=== PATIENT | male | born 1980 | race Caucasian/White ===

== ENCOUNTER → 2022-09-22 09:55 | Outpatient (CLI) | payer OTHER, SELFPAY ==
[2022-09-22 11:13] LABS: Add Manual Diff / Slide Review NO; Basophils Absolute Auto 0 /uL (0-100); Basophils Percent Auto 0.8 % (0-2); Eosinophils Absolute Auto 100 /uL (0-450); Eosinophils Percent Auto 2.3 % (2-4); Hematocrit 41.4 % (41-53); Lymphocytes Absolute Auto 1000 /uL (1100-4500); Lymphocytes Percent Auto 26.5 % (25-40); Mean Corpuscular HGB Conc 33.8 % (30-36); Mean Corpuscular Hemoglobin 27.3 PG (26-34); Mean Corpuscular Volume 80.8 fL (80-100); Monocytes Absolute Auto 300 /uL (0-900); Monocytes Percent Auto 9.1 % (3-14); Neutrophils Absolute Auto 2200 /uL (1500-7000); Neutrophils Percent Auto 61.3 % (50-75); Platelet Count 190 X10^3/uL (150-400); Red Blood Cell Count 5.12 X10^6/uL (4.5-5.9); Red Cell Distribution Width 13.6 % (11.6-14.8); White Blood Cell Count 3.6 X10^3/uL (4.5-11.0)
[2022-09-22 11:33] LABS: Alanine Aminotransferase 675 IU/L (<50); Albumin 4.6 g/dL (3.5-5.0); Albumin Globulin Ratio 1.4 (1.0-2.8); Alkaline Phosphatase 93 U/L (38-126); Aspartate Aminotransferase 260 IU/L (17-59); BUN Creatinine Ratio 13.3 (6-22); Bilirubin Total 7.1 mg/dL (0.2-1.3); Blood Urea Nitrogen 16 mg/dL (9-20); Calcium 9.4 mg/dL (8.4-10.2); Carbon Dioxide 26 mmol/L (22-32); Chloride 103 mmol/L (98-107); Estimated Glomerular Filt Rate > 60 mL/min (>60); Globulin 3.4 g/dL (1.7-4.1); Glucose 105 mg/dL (70-100); HEMOLYSIS < 15 (0-50); Lipase 81 U/L (23-300); Potassium 4.3 mmol/L (3.4-5.1); Sodium 140 mmol/L (137-145)
== END ==
PROVIDERS: Referring Provider Nurse Practitioner Family; Visit Provider Nurse Practitioner Family
DX: R10.9 Unspecified abdominal pain (principal)
CPT/HCPCS: 36415; 80053; 83690; 85025; 87086

== ENCOUNTER 2022-09-22 13:26 | Emergency (ER) | payer OTHER, SELFPAY ==
[2022-09-22] VITALS (12 sets, daily range): BP systolic 120–160; BP diastolic 70–110; PULSE 41–56; RESP 14–19; TEMP 37; O2SAT 94–100; BMI 28.0
--- NOTE | 2022-09-22 13:45 | DI.US.S_ITS ---
PROCEDURE: US ABDOMEN LIMITED INDICATIONS: ABNORMAL LABS TECHNIQUE: Real-time scanning was performed of the abdominal, with image documentation. COMPARISON: [facility], CT, CT CHEST ABD PEL W CON, 09/22/2022, 13:54. FINDINGS: Liver: Liver is normal in size and homogeneous in echotexture. Gallbladder: Nondilated. Sludge is present. No additional stones identified. Normal gallbladder wall thickness. No pericholecystic fluid. Negative sonographic Collins's sign. Biliary ducts: Intrahepatic biliary ductal dilatation. CBD is dilated measuring measures 2.1 cm. Distal CBD is not well seen. Pancreas: Not well seen. IMPRESSION: Biliary ductal dilatation. Choledocholithiasis seen on CT earlier today. Recommend ERCP. Gallbladder sludge. Dictated by: Kaleb Grover M.D. on 09/22/2022 at 15:39 Approved by: Kaleb Grover M.D. on 09/22/2022 at 15:44
--- NOTE | 2022-09-22 13:45 | DI.CT.S_ITS ---
PROCEDURE: CT CHEST ABD PEL W CON INDICATIONS: elevated liver enzymes, suspect cancer TECHNIQUE: After the administration of intravenous contrast, 5 mm thick sections acquired from the lung apices to the symphysis. 5 mm coronal and sagittal reformats were performed, with additional 7 mm MIP reformats through the lungs. For radiation dose reduction, the following was used: automated exposure control, adjustment of mA and/or kV according to patient size. COMPARISON: [facility], , ABDOMEN LIMITED, 09/22/2022, 14:09. FINDINGS: CHEST: Lungs and pleura: No consolidation. No pleural effusions or pneumothorax. Mediastinum: No pericardial effusion. No mediastinal or hilar adenopathy by size criteria. Thoracic aorta and central pulmonary arteries are normal in size. Esophagus is normal in caliber. Chest wall: No axillary or supraclavicular adenopathy by size criteria. ABDOMEN: Solid organs: Liver is normal in size and enhancement. Gallbladder is distended . Intrahepatic and extrahepatic biliary ductal dilation is present. Extrahepatic duct measures 18 millimeters. a 6 millimeter stone is present at the downstream duct/ampulla. Pancreas enhances normally. 1.6 centimeter peripherally enhancing structure at the anterior spleen (2/65). No adrenal nodules. Kidneys demonstrate normal size and enhancement, without hydronephrosis. Peritoneum and bowel: Bowel loops demonstrate normal wall thickness and caliber. Small amount of nonspecific pelvic free fluid. No free air. Nodes and vessels: No retroperitoneal or mesenteric adenopathy by size criteria. Aorta and inferior vena cava are normal in size. PELVIS: Genitourinary: Bladder wall thickness is normal. Miscellaneous: No adenopathy. Bones: Multilevel degenerative change of the visualized spine. IMPRESSION: 1. Biliary ductal dilation is present, to the level of a 6 millimeter stone at the downstream duct/ampulla. 2. Incidental note of a 1.6 centimeter peripherally enhancing lesion/structure within the anterior spleen. This is a nonspecific finding. Differential considerations would include hemangioma, hamartoma, or other etiologies. Splenic lesions are often difficult to definitively characterize by imaging. If clinically indicated, characterization could be attempted with nonemergent MRI of the abdomen with and without contrast, and/or imaging follow-up to assess for size stability. Dictated by: Wally Higgins M.D. on 09/22/2022 at 15:14 Approved by: Wally Higgins M.D. on 09/22/2022 at 15:33
[2022-09-22 13:56] LABS: Add Manual Diff / Slide Review NO; Basophils Absolute Auto 0 /uL (0-100); Basophils Percent Auto 0.8 % (0-2); Eosinophils Absolute Auto 100 /uL (0-450); Eosinophils Percent Auto 2.2 % (2-4); Hematocrit 40.8 % (41-53); Hemoglobin 13.6 g/dL (13.5-17.5); Lymphocytes Absolute Auto 1200 /uL (1100-4500); Lymphocytes Percent Auto 27.6 % (25-40); Mean Corpuscular HGB Conc 33.3 % (30-36); Mean Corpuscular Hemoglobin 27.1 PG (26-34); Mean Corpuscular Volume 81.5 fL (80-100); Monocytes Absolute Auto 400 /uL (0-900); Monocytes Percent Auto 9.3 % (3-14); Neutrophils Absolute Auto 2700 /uL (1500-7000); Neutrophils Percent Auto 60.1 % (50-75); Platelet Count 198 X10^3/uL (150-400); Red Blood Cell Count 5.01 X10^6/uL (4.5-5.9); Red Cell Distribution Width 13.7 % (11.6-14.8); White Blood Cell Count 4.4 X10^3/uL (4.5-11.0)
[2022-09-22 14:02] LABS: INR 1.1 (0.9-1.3); Prothrombin Time 12.7 SECONDS (10.1-12.7)
[2022-09-22 14:05] LABS: PTT Partial Thromboplastin Tim 34 SECONDS (26-36)
[2022-09-22 14:07] LABS: Alanine Aminotransferase 650 IU/L (<50); Albumin 4.6 g/dL (3.5-5.0); Albumin Globulin Ratio 1.3 (1.0-2.8); Alkaline Phosphatase 97 U/L (38-126); Aspartate Aminotransferase 243 IU/L (17-59); BUN Creatinine Ratio 14.4 (6-22); Bilirubin Total 7.6 mg/dL (0.2-1.3); Blood Urea Nitrogen 17 mg/dL (9-20); Carbon Dioxide 27 mmol/L (22-32); Chloride 103 mmol/L (98-107); Estimated Glomerular Filt Rate > 60 mL/min (>60); Globulin 3.5 g/dL (1.7-4.1); Glucose 109 mg/dL (70-100); HEMOLYSIS < 15 (0-50); Lipase 91 U/L (23-300); Potassium 3.6 mmol/L (3.4-5.1); Sodium 140 mmol/L (137-145); Total Protein 8.1 g/dL (6.3-8.2)
--- NOTE | 2022-09-22 15:36 | ED_ITS ---
HPI - Abdominal Pain General Chief Complaint: Abdominal Pain Stated Complaint: sent by [facility] elevated liver enzymes/ Time Seen by Provider: 09/22/22 13:45 Source: patient Mode of arrival: Ambulatory History of Present Illness HPI narrative: Patient is a healthy 42-year-old male healthy who presents today with abnormal labs. He reports that for the last 6 weeks he is had some upper epigastric pain off and on some decrease in appetite. However pain over the weekend got significantly worse. He reports that today he is doing much better. He denies any fever or chills. Went to walk-in clinic where he had outpatient labs found have elevated bilirubin of 7.1 AST 243, ALT 650, and sent here for further evaluation. He is currently reading a book. Denies any chest pain or shortness of breath. Related Data Home Medications Medication Instructions Recorded Confirmed No Known Home Medications 09/22/22 09/22/22 Allergies Allergy/AdvReac Type Severity Reaction Status Date / Time No Known Drug Allergies Allergy Verified 09/22/22 13:37 Review of Systems Review of Systems ROS Unobtainable: All systems reviewed & are unremarkable except as noted in HPI and below Patient History Social History Smoking Status: Never smoker Smoking Status: Never smoker alcohol intake frequency: a few times a month Substance Use Type: does not use Exam Initial Vital Signs Initial Vital Signs: Vital Signs Temperature 98.6 F 09/22/22 13:32 Pulse Rate 46 L 09/22/22 13:32 Respiratory Rate 16 09/22/22 13:32 Blood Pressure 148/110 H 09/22/22 13:32 Pulse Oximetry 100 09/22/22 13:32 Oxygen Delivery Method Room Air 09/22/22 13:32 GENERAL: Alert well-appearing 42-year-old male currently reading a book HEENT: Head atraumatic,EOMI, pupils reactive, face symmetric, [moist] mucous membranes CARDIOVASCULAR: Regular rate and rhythm without murmurs, rubs or gallops. RESPIRATORY: Breath sounds equal bilaterally, no wheezes rales or rhonchi. ABDOMEN: Soft, nontender. Normoactive bowel sounds all 4 quadrants. No guarding or rebound. No Collins sign EXTREMITIES: Normal range of motion, no clubbing or edema. Neurovascularly intact NEUROLOGICAL: Alert and oriented x4. SKIN: Warm, dry, no laceration, no petechiae, no rashes or lesions. Course Orders Ordered: ED Orders 09/22/22 13:45 CT chest abd pel w con Stat US abdomen limited Stat 09/22/22 13:48 CMP [Comprehensive Metabolic Panel] Stat Complete Blood Count AUTO DIFF Stat Lipase Stat PT [Prothrombin Time INR] Stat PTT Partial Thromboplastin Bhaskar Stat 09/22/22 16:25 COVID19 -Nasal RAPID Stat Discontinued Medications Sodium Chloride (Normal Saline 0.9%) 1,000 mls @ 1,000 mls/hr IV BOLUS ONE Stop: 09/22/22 17:00 Last Infusion: 09/22/22 17:08 Dose: 0 mls/hr Documented By: Admin: 09/22/22 16:07 Dose: 1,000 mls/hr Documented By: JOSIAS Ondansetron HCl (Ondansetron 4 Mg Odt) 4 mg PO NOW PRN PRN Reason: Nausea And Vomiting Ondansetron HCl (Ondansetron 4 Mg/2 Ml Inj) 4 mg IV NOW PRN PRN Reason: Nausea And Vomiting Vital Signs Vital signs: Vital Signs - 8 hr 09/22/22 13:32 09/22/22 15:56 09/22/22 15:57 Temperature 98.6 F Pulse Rate 46 L 44 L Respiratory Rate 16 Blood Pressure 148/110 H Pulse Oximetry 100 99 99 Oxygen Delivery Method Room Air 09/22/22 15:57 09/22/22 16:00 09/22/22 16:00 Temperature Pulse Rate 45 L Respiratory Rate Blood Pressure 140/86 151/85 H Pulse Oximetry 98 Oxygen Delivery Method 09/22/22 16:30 09/22/22 16:31 09/22/22 16:31 Temperature Pulse Rate 42 L 41 L Respiratory Rate 19 15 Blood Pressure 128/70 Pulse Oximetry 99 100 Oxygen Delivery Method 09/22/22 17:00 09/22/22 17:30 09/22/22 18:34 Temperature Pulse Rate 43 L 56 L Respiratory Rate 19 Blood Pressure Pulse Oximetry 99 97 94 Oxygen Delivery Method 09/22/22 18:35 09/22/22 18:35 09/22/22 19:00 Temperature Pulse Rate 43 L 48 L Respiratory Rate 14 18 Blood Pressure 120/82 Pulse Oximetry 98 99 Oxygen Delivery Method 09/22/22 19:01 09/22/22 19:01 Temperature Pulse Rate 52 L Respiratory Rate Blood Pressure 160/76 H Pulse Oximetry 97 Oxygen Delivery Method MDM - Abdominal Pain Lab Data 09/22/22 13:48 09/22/22 13:48 Labs: Lab Results 09/22/22 09/22/22 09/22/22 Range/Units 13:48 13:48 13:48 WBC 4.4 L (4.5-11.0) X10^3/uL RBC 5.01 (4.5-5.9) X10^6/uL Hgb 13.6 (13.5-17.5) g/dL Hct 40.8 L (41-53) % MCV 81.5 (80-100) fL MCH 27.1 (26-34) PG MCHC 33.3 (30-36) % RDW 13.7 (11.6-14.8) % Plt Count 198 (150-400) X10^3/uL Neut % (Auto) 60.1 (50-75) % Lymph % (Auto) 27.6 (25-40) % [place] % (Auto) 9.3 (3-14) % Eos % (Auto) 2.2 (2-4) % Baso % (Auto) 0.8 (0-2) % Neut # (Auto) 2700 (9073-6483) /uL Lymph # (Auto) 1200 (5831-2909) /uL [place] # (Auto) 400 (0-900) /uL Eos # (Auto) 100 (0-450) /uL Baso # (Auto) 0 (0-100) /uL PT 12.7 (10.1-12.7) SECONDS INR 1.1 (0.9-1.3) APTT 34 (26-36) SECONDS Sodium 140 (137-145) mmol/L Potassium 3.6 (3.4-5.1) mmol/L Chloride 103 (98-107) mmol/L Carbon Dioxide 27 (22-32) mmol/L BUN 17 (9-20) mg/dL Creatinine 1.18 (0.66-1.25) mg/dL Estimated GFR > 60 (>60) mL/min BUN/Creatinine Ratio 14.4 (6-22) Glucose 109 H (70-100) mg/dL Calcium 9.0 (8.4-10.2) mg/dL Total Bilirubin 7.6 H (0.2-1.3) mg/dL AST 243 H (17-59) IU/L ALT 650 H (<50) IU/L Alkaline Phosphatase 97 (38-126) U/L Total Protein 8.1 (6.3-8.2) g/dL Albumin 4.6 (3.5-5.0) g/dL Globulin 3.5 (1.7-4.1) g/dL Albumin/Globulin Ratio 1.3 (1.0-2.8) Lipase 91 (23-300) U/L SARS-CoV-2 (PCR) (Negative) 09/22/22 Range/Units 16:25 WBC (4.5-11.0) X10^3/uL RBC (4.5-5.9) X10^6/uL Hgb (13.5-17.5) g/dL Hct (41-53) % MCV (80-100) fL MCH (26-34) PG MCHC (30-36) % RDW (11.6-14.8) % Plt Count (150-400) X10^3/uL Neut % (Auto) (50-75) % Lymph % (Auto) (25-40) % [place] % (Auto) (3-14) % Eos % (Auto) (2-4) % Baso % (Auto) (0-2) % Neut # (Auto) (7210-4041) /uL Lymph # (Auto) (5269-7978) /uL [place] # (Auto) (0-900) /uL Eos # (Auto) (0-450) /uL Baso # (Auto) (0-100) /uL PT (10.1-12.7) SECONDS INR (0.9-1.3) APTT (26-36) SECONDS Sodium (137-145) mmol/L Potassium (3.4-5.1) mmol/L Chloride (98-107) mmol/L Carbon Dioxide (22-32) mmol/L BUN (9-20) mg/dL Creatinine (0.66-1.25) mg/dL Estimated GFR (>60) mL/min BUN/Creatinine Ratio (6-22) Glucose (70-100) mg/dL Calcium (8.4-10.2) mg/dL Total Bilirubin (0.2-1.3) mg/dL AST (17-59) IU/L ALT (<50) IU/L Alkaline Phosphatase (38-126) U/L Total Protein (6.3-8.2) g/dL Albumin (3.5-5.0) g/dL Globulin (1.7-4.1) g/dL Albumin/Globulin Ratio (1.0-2.8) Lipase (23-300) U/L SARS-CoV-2 (PCR) Negative (Negative) Point of care testing: Urine Dip Bedside Urine Glucose 100 mg/dl Bedside Urine Bilirubin - Negative Bedside Urine Ketone - Negative Urine Specific [place] 1.010 Bedside Urine Occult Blood - Negative Bedside Urine pH 6.0 Bedside Urine Protein - Negative Bedside Urine Urobilinogen - Negative Bedside Urine Nitrite - Negative Bedside Urine Leukocytes - Negative Esterase Imaging Data US - abdomen: Radiologist's Impression: PROCEDURE:? US ABDOMEN LIMITED ? INDICATIONS:? ABNORMAL LABS ? TECHNIQUE:? Real-time scanning was performed of the abdominal, with image documentation.? ? COMPARISON:? [facility], CT, CT CHEST ABD PEL W CON, 09/22/2022, 13:54. ? FINDINGS:? ? Liver:? Liver is normal in size and homogeneous in echotexture.? ? Gallbladder:? Nondilated.? Sludge is present.? No additional stones identified. Normal gallbladder wall thickness. No pericholecystic fluid. Negative sonographic Collins's sign. ? ? Biliary ducts:? Intrahepatic biliary ductal dilatation.? CBD is dilated measuring measures 2.1 cm.? Distal CBD is not well seen. ? Pancreas:? Not well seen.? ? ? IMPRESSION:? Biliary ductal dilatation.? ? Choledocholithiasis seen on CT earlier today. ? Recommend ERCP. ? Gallbladder sludge. ? Dictated by: Kaleb Grover M.D. on 09/22/2022 at 15:39 ? ? CT scan - abdomen/pelvis: Radiologist's Impression: PROCEDURE:? CT CHEST ABD PEL W CON ? INDICATIONS:? elevated liver enzymes, suspect cancer ? TECHNIQUE:? After the administration of intravenous contrast, 5 mm thick sections acquired from the lung apices to the symphysis.? 5 mm coronal and sagittal reformats were performed, with additional 7 mm MIP reformats through the lungs.? For radiation dose reduction, the following was used:? automated exposure control, adjustment of mA and/or kV acco rding to patient size.? ? COMPARISON:? [facility], , ABDOMEN LIMITED, 09/22/2022, 14:09. ? FINDINGS:? ? CHEST:? Lungs and pleura:? No consolidation.? No pleural effusions or pneumothorax.? ? Mediastinum:? ? No pericardial effusion.? No mediastinal or hilar adenopathy by size criteria.? Thoracic aorta and central pulmonary arteries are normal in size.? Esophagus is normal in caliber.? ? Chest wall:? No axillary or supraclavicular adenopathy by size criteria.? ? ? ABDOMEN:? Solid organs:? Liver is normal in size and enhancement.? Gallbladder is distended .? Intrahepatic and extrahepatic biliary ductal dilation is present.? Extrahepatic duct measures 18 millimeters. a 6 millimeter stone is present at the downstream duct/ampulla.? Pancreas enhances normally.? 1.6 centimeter peripherally enhancing structure at the anterior spleen (2/65).? No adrenal nodules.? Kidneys demonstrate normal size and enhancement, without hydronephrosis.? ? Peritoneum and bowel:? Bowel loops demonstrate normal wall thickness and caliber.? Small amount of nonspecific pelvic free fluid.? No free air. ? Nodes and vessels:? No retroperitoneal or mesenteric adenopathy by size criteria.? Aorta and inferior vena cava are normal in size.? PELVIS:? Genitourinary:? Bladder wall thickness is normal.? ? Miscellaneous:? No adenopathy.? ? Bones:? Multilevel degenerative change of the visualized spine. ? IMPRESSION:? 1. Biliary ductal dilation is present, to the level of a 6 millimeter stone at the downstream duct/ampulla. 2. Incidental note of a 1.6 centimeter peripherally enhancing lesion/structure w ithin the anterior spleen.? This is a nonspecific finding.? Differential considerations would include hemangioma, hamartoma, or other etiologies.? Splenic lesions are often difficult to definitively characterize by imaging.? If clinically indicated, characterization could be attempted with nonemergent MRI of the abdomen with and without contrast, and/or imaging follow-up to assess for size stability.? ? Dictated by: Wally Higgins M.D. on 09/22/2022 at 15:14 ? [facility] Narrative Medical decision making narrative: Patient 42-year-old male sent here for elevated liver enzymes and bilirubin. He reports having pain over the last couple of weeks significantly worse over the last 2 days but suddenly better today. CT confirms it 6 mm stone in duct near the ampulla. He is no leukocytosis no fever no electrolyte abnormality or JUAN. No evidence of infection. He is not required anything for pain or nausea here in the emergency department. Patient will require an ERCP. Dr. Szymanski, GI at [facility] updated on patient's symptoms and test results request talking to the hospitalist for admission but will consult for ERCP Dr. Shafer updated on patient's symptoms test results. Discharge Plan Departure Patient Disposition: [facility] Clinical Impression: Choledocholithiasis Prescriptions: No Action No Known Home Medications Referrals: Miscellaneous,Doctor[facility] [Primary Care Provider] -
[2022-09-22] MEDS: SODIUM CHLORIDE 0.9% 1,000 ML 1000 ML IV (16:07)
[2022-09-22 16:43] LABS: COVID19 -Nasal RAPID Negative (Negative)
== END 2022-09-22 20:28 | disposition short-term general hospital (02) ==
PROVIDERS: Emergency Provider Emergency Medicine
DX: K80.50 Calculus of bile duct without cholangitis or cholecystitis without obstruction (principal); R79.89 Other specified abnormal findings of blood chemistry; Z20.822 Contact with and (suspected) exposure to COVID-19; C83.39 Diffuse large B-cell lymphoma, extranodal and solid organ sites
CPT/HCPCS: 36415; 71260; 74177; 76705; 80053; 81003; 83690; 85025; 85610; 85730; 87086; 87635; 96360; 99284; C9803; Q9967

== ENCOUNTER → 2025-02-13 10:20 | Outpatient (CLI) | payer OTHER, SELFPAY ==
[2025-02-13 11:00] LABS: Add Manual Diff / Slide Review NO; Hematocrit 40.6 % (41-53); Hemoglobin 13.8 g/dL (13.5-17.5); Lymphocytes Absolute Auto 800 /uL (1100-4500); Mean Corpuscular HGB Conc 33.9 % (30-36); Mean Corpuscular Hemoglobin 27.1 PG (26-34); Mean Corpuscular Volume 79.8 fL (80-100); Platelet Count 149 X10^3/uL (150-400)
[2025-02-13 11:59] LABS: Alanine Aminotransferase 20 IU/L (<50); Albumin 4.5 g/dL (3.5-5.0); Albumin Globulin Ratio 1.6 (1.0-2.8); Alkaline Phosphatase 37 U/L (38-126); Blood Urea Nitrogen 21 mg/dL (9-20); Calcium 9.3 mg/dL (8.4-10.2); Carbon Dioxide 26 mmol/L (22-32); Chloride 102 mmol/L (98-107); Estimated Glomerular Filt Rate > 60 mL/min (>60); Globulin 2.8 g/dL (1.7-4.1); Glucose 109 mg/dL (70-99); HEMOLYSIS < 15 (0-50); Potassium 4.1 mmol/L (3.4-5.1); Sodium 138 mmol/L (137-145); Total Protein 7.3 g/dL (6.3-8.2)
[2025-02-13 12:29] LABS: TSH w/ Reflex to FT4 1.27 uIU/mL (0.47-4.68)
== END ==
PROVIDERS: Referring Provider Physician Assistant Medical; Visit Provider Physician Assistant Medical
DX: R53.83 Other fatigue (principal)
CPT/HCPCS: 36415; 80053; 84443; 85025